=== PATIENT | female | born 1970 | race Caucasian/White ===

== ENCOUNTER 2018-07-31 14:23 | Emergency (ER) | payer MEDICARE, OTHER ==
[~2018-07-31] VITALS: Ht 167.6 cm; Wt 70.0 kg
[2018-07-31 14:26] VITALS: BP 149/95
[2018-07-31] MEDS ORDERED: CEPH-571 PO (14:42)
== END 2018-07-31 15:08 | disposition home or self-care (01) ==
LOC: ER 14:23
DX: L03.114 Cellulitis of left upper limb (principal); Z88.1 Allergy status to other antibiotic agents
CPT/HCPCS: 73120; 99284

== ENCOUNTER 2018-08-02 09:34 | Emergency (ER) | payer MEDICARE, OTHER ==
[~2018-08-02] VITALS: Ht 167.6 cm; Wt 70.0 kg
[~2018-08-02 09:34] MED LIST: CEPH-571 PO
[2018-08-02 09:45] VITALS: BP 138/95
== END 2018-08-02 10:43 | disposition home or self-care (01) ==
LOC: ER 09:35
DX: L03.114 Cellulitis of left upper limb (principal); Z88.1 Allergy status to other antibiotic agents; Z79.2 Long term (current) use of antibiotics
CPT/HCPCS: 99281

== ENCOUNTER 2019-07-10 06:56 | Emergency (ER) | payer MEDICARE, MEDICAID ==
[~2019-07-10] VITALS: Ht 167.6 cm; Wt 91.0 kg
[2019-07-10 06:58] VITALS: BP 164/95
[2019-07-10] MEDS ORDERED: orphenadrine citrate 60mg/2ml inj. IM ONE (07:05)
[2019-07-10] MEDS ORDERED: ketorolac trometh inj. 60 MG/2 ML VIAL IM ONE (07:05)
[2019-07-10] MEDS ORDERED: ORPH100T2 PO (07:09)
[2019-07-10] MEDS ORDERED: IBUP-1986 PO (07:09)
[2019-07-10] MEDS ORDERED: HYDR-4353 PO (07:09)
[2019-07-10] MEDS ORDERED: HYDROcodone/acetaminophen 10/325mg tab PO ONE (07:45)
--- NOTE | 2019-07-10 08:20 | NUR ---
Pt reports inalbe to walk to bathroom. Pt able to get into wheelchair and able to use bathroom without assist.
--- NOTE | 2019-07-10 08:40 | NUR ---
Pt reports she is unable to ambulate and states it is too early for her discharge and wants to speak with MD. Spoke with Dr. Price and MD to go talk with pt.
== END 2019-07-10 10:33 | disposition home or self-care (01) ==
LOC: ER 06:57
DX: S39.012A Strain of muscle, fascia and tendon of lower back, initial encounter (principal); F31.9 Bipolar disorder, unspecified; F17.200 Nicotine dependence, unspecified, uncomplicated; F12.90 Cannabis use, unspecified, uncomplicated; Z88.1 Allergy status to other antibiotic agents; Z79.899 Other long term (current) drug therapy; X58.XXXA Exposure to other specified factors, initial encounter; Y93.89 Activity, other specified; Y92.89 Other specified places as the place of occurrence of the external cause; Y99.8 Other external cause status
CPT/HCPCS: 96372; 99283; J1885; J2360

== ENCOUNTER 2019-08-16 04:25 | Emergency (ER) | payer MEDICARE, MEDICAID ==
[~2019-08-16] VITALS: Ht 167.6 cm; Wt 100.0 kg
[~2019-08-16 04:25] MED LIST changes: -CEPH-571 PO; +IBUP-1986 PO; +ORPH100T2 PO
[2019-08-16 04:59] VITALS: BP 165/87
== END 2019-08-16 05:03 | disposition home or self-care (01) ==
LOC: ER 04:26
DX: T17.298A Other foreign object in pharynx causing other injury, initial encounter (principal); F12.90 Cannabis use, unspecified, uncomplicated; F31.9 Bipolar disorder, unspecified; Z88.1 Allergy status to other antibiotic agents; Z79.899 Other long term (current) drug therapy; X58.XXXA Exposure to other specified factors, initial encounter; Y93.89 Activity, other specified; Y92.89 Other specified places as the place of occurrence of the external cause; Y99.8 Other external cause status
CPT/HCPCS: 99281

== ENCOUNTER 2024-12-16 13:40 | Emergency (ER) | payer BC, MEDICAID ==
[~2024-12-16] VITALS: Ht 165.1 cm; Wt 103.9 kg
[~2024-12-16 13:40] MED LIST changes: -ORPH100T2 PO; +ORPH100T4 PO
[2024-12-16 14:02] VITALS: BP 157/92; PULSE 57; RESP 16; TEMP 99.2; O2SAT 96
[2024-12-16] MEDS ORDERED: BACL10TA2 PO (14:45)
[2024-12-16] MEDS ORDERED: LIDO700A32 TD (14:45)
[2024-12-16] MEDS: LIDOcaine 5% patch TP STA (14:46)
== END 2024-12-16 15:00 | disposition home or self-care (01) ==
LOC: ER 13:40
DX: R07.81 Pleurodynia (principal); R05.9 Cough, unspecified; J44.9 Chronic obstructive pulmonary disease, unspecified; F12.90 Cannabis use, unspecified, uncomplicated; F31.9 Bipolar disorder, unspecified; Z88.1 Allergy status to other antibiotic agents; Z79.1 Long term (current) use of non-steroidal anti-inflammatories (NSAID); Z79.899 Other long term (current) drug therapy
CPT/HCPCS: 71045; 99283

== ENCOUNTER 2025-08-04 06:38 | Emergency (ER) | payer BC, MEDICAID ==
[~2025-08-04] VITALS: Ht 165.1 cm; Wt 104.5 kg
[~2025-08-04 06:38] MED LIST changes: +BACL10TA2 PO; +LIDO-52 TD
[2025-08-04 06:43] VITALS: BP 160/99
[2025-08-04] MEDS ORDERED: diph,pertuss (acell), tet (DTaP-PEDs)/PF (PEDIATRIC) 0.5ml syringe IMVAC ONE (06:55)
--- NOTE | 2025-08-04 06:57 | Physician Documentation ---
History of Present Illness ~ Chief Complaint: Laceration Stated Complaint: FINGER LACERATION Time Seen by MD: 06:47 Primary Medical Doctor: Reynaldo Saleem in [facility] Mode of Arrival: POV HPI 55-year-old female patient with a history of hypertension came to the emergency room ambulatory because left index finger dorsal laceration while she was lifting a carpet at home about 05:20. No other injuries. No bleeding. She wants to have tetanus update. Tetanus Within 5 Years: No (Since she was [age] no tetanus update.) Medication Reconciliation Allergies: Coded Allergies: amoxicillin (Verified Allergy, Unknown, 12/16/24) Scheduled Baclofen (Baclofen), 1 TAB PO Q8H Ibuprofen (Ibuprofen), 1 TAB PO Q8H Lidocaine (Lidoderm), 1 PATCH TD DAILY Orphenadrine Citrate (Norflex), 1 TAB PO Q12H PRN Past Medical History Past Medical History: Bipolar Past Surgical History: noncontributory Alcohol Use: None Drug Use: marijuana Lives with: Family Lives In: Home Review of Systems ROS As stated above in the HPI, otherwise all systems are reviewed and negative. Physical Exam Vital Signs: Temperature: 98.0, Source: Temporal, Heart Rate: 116, Respiratory Rate: 18, BP: 160/99, Pulse Oximetry: 99, Weight: 104.500 Oxygen Flow Rate: 0 Physical Exam Reviewed vital signs and I noticed her blood pressure is slightly elevated and heart rate is also slightly up. Const: Anxious looking not in acute cardiopulmonary distress Head: Atraumatic Eyes: Normal Conjunctiva ENT: Normal External Ears, Nose and Mouth. Moist mucous membranes Neck: Full range of motion. No meningismus Resp: Clear to auscultation bilaterally. Normal work of breathing Cardio: Regular rate and rhythm, no murmurs. Skin well perfused, heart rate 1 one two per minute Abd: Soft, non-tender, non-distended. Normal bowel sounds. No rebound or guarding Skin: No petechiae or rashes. Warm and dry Back: No midline or flank tenderness Ext: No cyanosis, or edema Local examination of the left index finger: Just below the nail bed in the dorsal aspect there is a transverse small superficial laceration about 3 mm. No bleeding. Neuro: Awake and alert Psych: Normal Mood and Affect Progress Results/Orders Results/Orders Completed Orders - NGUYỄN CH MD Tetanus/Pertuss/Diph Acell/Pf (Boostrix (08/04/25 07:00) Vital Signs 08/04/25 08/04/25 08/04/25 06:43 07:32 07:36 Temp 98.0 98.0 Pulse 116 93 93 Resp 18 17 17 B/P (MAP) 160/99 Pulse Ox 99 98 98 O2 Flow Rate 0 0 Medical Decision Making Findings ER Course/Med. Decision Making REVIEW of RECORD(S): Previous medical records here and/or external medical records, such as that provided directly by the patient, by EMS and/or outside medical facilities, if available, were reviewed. COMORBIDITIES hypertension MDM During the physical examination, the findings suggestive of acute life- threatening condition such as JVD, tracheal deviation, acidotic breathing, noisy stridorous breath sounds, pulses paradoxus, muffled heart sounds, unequal breath sounds, abdominal rigidity and rebound tenderness, focal neurological deficits, cool clammy skin, severe hypotension, severe tachycardia or bradycardia are absent. Patient presenting for left index finger laceration. Vital signs reviewed. Patient is hemodynamically stable and does not meet SIRS criteria. Patient appears nontoxic on exam. The laceration is very superficial and only about 3 mm and does not require any stitching up other than cleaning up. The patient will be given tetanus update. A DIFFERENTIAL DIAGNOSIS associated with the patients presentation includes: TREATMENT/DISPOSITION: The patient's presentation is most consistent with superficial laceration of the left index finger. Prior to discharge I independently reviewed the patients past medical history, clinical risk factors, comorbidities, and social determinants of health and diagnostic studies. The patient appears to be a safe discharge home with close outpatient PCP follow-up I had extensive discussion with patient regarding management, disposition and follow up. Potential symptom etiology was discussed, and shared decision making occurred. They will return immediately if symptoms worsen, do not improve, or they have any further concerns. Prior to discharge all questions were addressed. The patient is aware that the purpose of this visit was to screen for an acute medical emergency requiring emergent stabilization. Chronic and occult conditions, including malignancies, have not been ruled out. If patient is unable to arrange follow-up as stated in the discharge instructions and further discussed with the patient directly, or their symptoms worsen/become more concerning, they are to return to the ER for reassessment immediately. Prior to leaving the department, the patient has a plan for discharge, has decision making capacity, and acknowledges an understanding of the verbal and written discharge instructions. SOCIAL DETERMINANTS: Patient demonstrates no obvious challenges to following up as an outpatient although did consider whether patient had any barriers to access care including homelessness, Food insecurity, Mental health, Substance abuse, Disabilities, Limited access to medical care, Difficulty finding transport, Insurance issues, Refusal of care or testing due to cost concerns. MEDICAL SCREENING: I have discussed with the patient the non-definitive nature of the emergency screening exam, diagnosis and the possibility of a variety of conditions which may present in atypically benign fashion and stressed the importance of close follow-up for definitive diagnosis and treatment. We discussed signs and symptoms that should be watched for which might indicate a more serious or new condition that would benefit from emergency reevaluation and the patient has verbalized understanding to this and my other detailed discharge instructions and promises compliance. I have referred him back to his primary physician of course for a more detailed evaluation and more definitive diagnoses. DISCLAIMER: Inadvertent spelling and grammatical errors are likely due to EMR/dictation software use and do not reflect on the overall quality of patient care. Note that the electronic time recorded on this note does not necessarily reflect the actual time of the patient encounter. Departure Disposition: HOME / SELF CARE / HOMELESS Impression: Primary Impression: Superficial laceration of finger Condition: Stable Additional Instructions: Thank you for coming to our Emergency Department today. Please ask your nurse or provider if you have questions about your care today and do not leave until all your questions have been answered. Please use any medications given as directed and follow-up with your doctor (or the doctor you were referred to) in the next 1-3 days. Your primary care doctor can help to coordinate outpatient specialty care and provide authorization for specialty referral as needed. If you do not have a primary care doctor [place] [facility] [place] You may also use motrin and tylenol as needed for fever and/or pain unless instructed otherwise by your provider or nurse. Indications for more urgent follow-up have been discussed, but you may return to the Emergency Department at ANY time for any worrisome or worsening symptoms. Referrals: NO PRIMARY CARE PROVIDER (PCP) Education Educated: Patient Signature Scribe Signature: None Attestation: This is my dictation. NGUYỄN CH MD Aug 04, 2025 06:57
[2025-08-04] MEDS: TETanus/Pertussis (Acell)/Diphther VAC/PF (Tdap-Adult) 0.5ml syringe IMVAC ONE (07:07)
[2025-08-04 07:36] VITALS: PULSE 93; RESP 17; TEMP 98; O2SAT 98
== END 2025-08-04 07:37 | disposition home or self-care (01) ==
LOC: ER 06:39
DX: S61.211A Laceration without foreign body of left index finger without damage to nail, initial encounter (principal); I10 Essential (primary) hypertension; F31.9 Bipolar disorder, unspecified; Z88.1 Allergy status to other antibiotic agents; Z79.899 Other long term (current) drug therapy; X50.9XXA Other and unspecified overexertion or strenuous movements or postures, initial encounter; Y93.89 Activity, other specified; Y92.009 Unspecified place in unspecified non-institutional (private) residence as the place of occurrence of the external cause; Y99.8 Other external cause status
CPT/HCPCS: 90471; 90715; 99283